=== PATIENT | male | born 2000 | race Caucasian/White ===

== ENCOUNTER 2022-08-11 09:54 | Day surgery (SDC) | payer BC ==
--- NOTE | 2022-08-10 10:52 | HP ---
DATE OF SURGERY: 08/11/2022 HISTORY OF PRESENT ILLNESS: The patient is a 21-year-old presents with complaints of left inguinal hernia. The hernia is quite large into the scrotum. He said he has had this since he was young. It hurts at times. He had done a physical exam for a job and was turned down due to this hernia. PAST MEDICAL HISTORY: None. PAST SURGICAL HISTORY: None. ALLERGIES: PENICILLIN. MEDICATIONS: None. FAMILY HISTORY: Diabetes, heart disease. SOCIAL HISTORY: Reports frequent alcohol use. REVIEW OF SYSTEMS: CONSTITUTIONAL: Denies fever or chills. CHEST: Denies shortness of breath. CVS: Denies chest pain. ABDOMEN: Denies abdominal pain. PHYSICAL EXAMINATION: GENERAL: No acute distress. CHEST: Nonlabored. No shortness of breath. CVS: Regular rate and rhythm. ABDOMEN: Soft. IMPRESSION: A large left inguinal hernia into the scrotum. PLAN: Left inguinal hernia repair with possible mesh with Dr. Jose Webber. As dictated by Jacque Cabello NP.
[~2022-08-11 09:54] MED LIST: KEFZOL 1 GM ONE; Lactated Ringers 1,000 ML IV ONE; Sensorcaine 0.25% 10 ML ONE
[2022-08-11] MEDS ORDERED: EXPAREL 133 MG/10 ML VIAL IJ ONE (09:55)
[2022-08-11] MEDS ORDERED: Transderm Scop 1.5MG Patch TOP PRN (10:49)
[2022-08-11] MEDS ORDERED: Versed 2 MG/2 ML Injection IV PRN (10:49)
[2022-08-11] MEDS ORDERED: Lactated Ringers 1,000 ML IV SCH (11:00)
[2022-08-11] MEDS ORDERED: Transderm Scop 1.5MG Patch ONE (11:10)
[2022-08-11] MEDS ORDERED: CLINDAMYCIN-D5W 900 MG/50 ML*** 900 MG/50 ML BAG IV ONE (11:10)
[2022-08-11] MEDS ORDERED: Lactated Ringers 1,000 ML IV ONE (11:10)
[2022-08-11] MEDS ORDERED: Versed 2 MG/2 ML Injection ONE (11:10)
[2022-08-11] MEDS ORDERED: CLINDAMYCIN-D5W 900 MG/50 ML*** 900 MG/50 ML BAG IV SCH (11:30)
[2022-08-11] MEDS ORDERED: DIPRIVAN 200 MG/20 ML IV ONE (12:24)
[2022-08-11] MEDS ORDERED: Xylocaine-Mpf 2% 5 Ml Vial ONE (12:24)
[2022-08-11] MEDS ORDERED: Decadron 4 MG INJ ONE (12:24)
[2022-08-11] MEDS ORDERED: Quelicin Fliptop 200 MG/10 ML ONE (12:24)
[2022-08-11] MEDS ORDERED: DEXMEDETOMIDINE 80 MCG/20ML-NS IV ONE (12:24)
[2022-08-11] MEDS ORDERED: Zofran 4 MG/2 ML VIAL ONE (12:24)
[2022-08-11] MEDS ORDERED: SUBLIMAZE 100 MCG/2 ML ONE ×2 (12:27→14:36)
[2022-08-11] MEDS ORDERED: Pre-Attached Lta Kit TP ONE (12:42)
[2022-08-11] MEDS ORDERED: Sensorcaine 0.25% 10 ML ONE (12:42)
[2022-08-11] MEDS ORDERED: OFIRMEV 100 ML IV ONE (12:42)
[2022-08-11] MEDS ORDERED: Zemuron 100 MG/10 ML ONE (13:15)
[2022-08-11] MEDS ORDERED: TORAdol 30 mg Injection ONE (13:39)
[2022-08-11] MEDS ORDERED: BRIDION 200MG/2ML IV ONE (13:54)
--- NOTE | 2022-08-11 14:41 | OP ---
AMENDED REPORT: SURGERY DATE/TIME: 08/11/2022 1236 PREOPERATIVE DIAGNOSIS: Large left inguinal hernia. POSTOPERATIVE DIAGNOSIS: Large left inguinal hernia. PROCEDURE: Left inguinal hernia with mesh. SURGEON: Jose Webber M.D. WATER METER READER: Jacque Cabello NP. ANESTHESIA: General. ESTIMATED BLOOD LOSS: None. CONDITION: Stable. INDICATION: The patient with symptomatic hernia. DESCRIPTION OF PROCEDURE: Taken to surgery. General anesthetic. Routine prep and drape. Time out performed. 0.25% Marcaine. Curvilinear incision. External oblique opened. Cord was about 2 inches. It was pulled back. There was a large piece of omentum this was resected, i.e. partial omentectomy, about a pound of omentum was removed. Hemostasis satisfactory. Internal ring tied off with 0 Prolene in pursestring fashion. A second layer was placed above this. The cord had been skeletonized satisfactory. The cord is reinforced in Derian's ligament type fashion, mesh and 0 Prolene. Internal ring was one clamp tight. Hemostasis satisfactory. External oblique closed with 0 Vicryl. Rahel fascia closed with 2-0 Vicryl. Skin closed with 4-0 Vicryl. Steri-Strips applied. Sterile dressing applied. The patient tolerated the procedure satisfactorily. Findings discussed with the family in the waiting room.
[2022-08-11] MEDS ORDERED: NORCO 5/325 MG PO PRN (15:10)
[2022-08-11 15:42] VITALS: BP 135/89; PULSE 61; O2SAT 97
== END 2022-08-11 15:45 | disposition home or self-care (01) ==
LOC: SDC 09:54
PROVIDERS: ATTEND Surgery
DX: K40.30 Unilateral inguinal hernia, with obstruction, without gangrene, not specified as recurrent (principal)
CPT/HCPCS: 49255; 49507; 64486; 76937; 96374; C1781; J0330; J0690; J1100; J1885; J2250; J2405; J2704; J3010; A9270-GY